=== PATIENT | female | born 1970 | race Caucasian/White ===

== ENCOUNTER 2020-06-18 09:38 | Emergency (ER) | payer BC, OTHER ==
[2020-06-18 11:37] LABS: HEMOGLOBIN 13.9 gm/dl (12.3-15.3); RED BLOOD COUNT 4.46 M/UL (4.00-5.10); WHITE BLOOD COUNT 11.1 K/UL (4.5-11.0)
[2020-06-18 12:25] LABS: BUN/CREATININE RATIO 21 (0-10)
[2020-06-18] MEDS ORDERED: ONDANSETRON ODT4 MG SL (15:03)
[2020-06-18] MEDS ORDERED: IMODIUM CAP 2 MG2 MG PO (15:03)
== END 2020-06-18 15:14 | disposition home or self-care (01) ==
LOC: ER1 09:38
PROVIDERS: Physician Assistant
DX: J06.9 Acute upper respiratory infection, unspecified (principal); J40 Bronchitis, not specified as acute or chronic; R11.2 Nausea with vomiting, unspecified; R19.7 Diarrhea, unspecified; R10.9 Unspecified abdominal pain; Z20.822 Contact with and (suspected) exposure to COVID-19
CPT/HCPCS: 0240U; 71045; 80053; 81001; 83690; 85025; 87081; 87880; 93005; 96374; 96375; 99284; C9113; J2405; J7030; Q9967